=== PATIENT | female | born 1950 | race Caucasian/White ===

== ENCOUNTER 2017-06-26 00:44 | Emergency (ER) | payer OTHER ==
[~2017-06-26 00:44] MED LIST: Haloperidol INJ IV/IM* 5 MG/ML AMP ONE; LORazepam INJ* 2 MG/ML 1 ML VIAL ONE
[2017-06-26 01:49] LABS: Hematocrit 37 % (35-47); Hemoglobin 12.9 g/dl (12.0-16.0); Mean Corpuscular HGB Conc 35 g/dl (31-36); Mean Corpuscular Hemoglobin 34 pg (27-31); Mean Corpuscular Volume 98 fL (80-97); Mean Platelet Volume 8 um3 (7.4-10.4); Red Blood Count 3.78 10^6/ul (4.0-5.4); Red Cell Distribution Width 13 % (10.5-15); White Blood Count 5.1 10^3/ul (3.5-10.8)
[2017-06-26 02:03] LABS: ALT 22 U/L (7-52); AST 27 U/L (13-39); Albumin 3.8 g/dL (3.2-5.2); Alkaline Phosphatase 46 U/L (34-104); Anion Gap 8 mmol/L (2-11); BUN/Creatinine Ratio 15.5 (8-20); Blood Urea Nitrogen 13 mg/dL (6-24); CO2 Carbon Dioxide 25 mmol/L (22-32); Calcium 8.6 mg/dL (8.6-10.3); Chloride 106 mmol/L (101-111); EGFR African American 87.2 (>60); EGFR Non-African American 67.8 (>60); Glucose 114 mg/dL (70-100); Potassium 3.3 mmol/L (3.5-5.0); Sodium 139 mmol/L (133-145); Total Protein 5.8 g/dL (6.4-8.9)
[2017-06-26 02:09] LABS: Acetaminophen < 15 mcg/mL; Alcohol 222 mg/dL (<10); Salicylate < 2.50 mg/dL (<30)
[2017-06-26 02:25] LABS: TSH (Thyroid Stimulating Horm) 0.81 mcIU/mL (0.34-5.60)
[2017-06-26] MEDS ORDERED: NS 0.9% 1000 ML* 2,000 ML IV ONE (02:33)
[2017-06-26] MEDS ORDERED: NS 0.9% 1000 ML* 1,000 ML IV SCH (02:45)
[2017-06-26] MEDS ORDERED: Potassium Chlor TAB* 20 MEQ TAB.ER PO ONE (03:52)
[2017-06-26 04:49] LABS: Urine Bacteria Absent (Absent); Urine Bilirubin Negative (Negative); Urine Glucose Negative (Negative); Urine Nitrite Negative (Negative)
[2017-06-26 04:53] LABS: Benzodiazepine Urine Screen None Detected (None Detect)
[2017-06-26] MEDS ORDERED: NS 0.9% 1000 ML* 1,000 ML IV ONE (05:40)
--- NOTE | 2017-06-26 06:44 | ED ---
Willis Gutiérrez Tiffany, scriblorna for Josue Figueredo on 06/26/17 at 0111 . Adult Trauma - HPI Summary HPI Summary: This patient is a 66 year old F BIBA to [facility] accompanied by with a chief complaint of laceration to the back of her head s/p falling and hitting her head minutes ago. Symptoms aggravated by nothing. Symptoms alleviated by nothing. Per EMS, loss of conscious is unknown. The patient is 941. Upon arrival to ED, patient was in handcuffs and very agitated. Per patients , the patient is confused at baseline. He states that she drank some alcohol today before falling. - History of Current Complaint Stated Complaint: 941 Time Seen by Provider: 06/26/17 00:45 Hx Obtained From: Family/Inseamer - , EMS Mechanism of Injury: Fall Loss of Consciousness: unsure Onset/Duration: Started Minutes Ago, Still Present Location: Head Aggravating Factor(s): Nothing Alleviating Factor(s): Nothing - Additional Pertinent History Primary Care Physician: OBI - Allergy/Home Medications Allergies/Adverse Reactions: Allergies Allergy/AdvReac Type Severity Reaction Status Date / Time No Known Allergies Allergy Verified 01/14/16 17:42 PMH/Surg Hx/FS Hx/Imm Hx Previously Healthy: No Endocrine/Hematology History: Denies: Hx Diabetes Cardiovascular History: Denies: Hx Hypertension, Hx Pacemaker/ICD Respiratory History: Denies: Hx Asthma Musculoskeletal History: Reports: Hx Arthritis, Hx Back Problems Sensory History: Reports: Hx Contacts or Glasses Denies: Hx Hearing Aid Opthamlomology History: Reports: Hx Contacts or Glasses Psychiatric History: Reports: Hx Depression - depression last week on [facility] Denies: Hx Panic Disorder - Cancer History Hx Chemotherapy: No Hx Radiation Therapy: No - Surgical History Surgery Procedure, Year, and Place: crainiotomy Hx Anesthesia Reactions: No Infectious Disease History: Denies: Traveled Outside the [place] in Last 30 Days - Family History Known Family History: Positive: Other - Pt is uncooperative - Social History Alcohol Use: None Hx Substance Use: No Substance Use Type: Reports: None Hx Tobacco Use: No Smoking Status (MU): Never Smoked Tobacco Review of Systems Positive: Other - Laceration to back of head Positive: Other - Agitated All Other Systems Reviewed And Are Negative: Yes Physical Exam - Summary Physical Exam Summary: Appearance: alert and confused when she came in Skin: warm, dry, reflects adequate perfusion Head/face: 5 cm laceration over occipital scalp region Eyes: EOMI, AUDREY ENT: normal Neck: supple, non-tender Respiratory: CTA, breath sounds present Cardiovascular: RRR, pulses symmetrical Abdomen: non-tender, soft Bowel: present Musculoskeletal: normal, strength/ROM intact Neuro: normal, sensory motor intact, A&Ox3 Triage Information Reviewed: Yes Vital Signs On Initial Exam: Initial Vitals Temp Pulse Resp BP Pulse Ox 0 F 0 0 000/00 0 06/26/17 00:50 06/26/17 00:50 06/26/17 00:50 06/26/17 00:50 06/26/17 00:50 Vital Signs Reviewed: Yes Procedures - Procedure Summary Procedure Summary: At 03:13, patients laceration was cleaned with normal saline. Nine negin were placed, aseptic conditions. Patient tolerated well throughout with no complications. Diagnostics - Vital Signs Vital Signs Temp Pulse Resp BP Pulse Ox 06/26/17 04:34 71 16 97/70 96 06/26/17 03:26 71 16 131/82 98 06/26/17 02:34 64 14 95/60 95 06/26/17 01:45 65 14 102/60 92 06/26/17 01:44 97.4 F 68 14 76/56 94 06/26/17 00:50 0 F 0 0 000/00 0 - Laboratory Lab Results: Lab Results 06/26/17 06/26/17 06/26/17 Range/Units 01:30 01:30 04:30 WBC 5.1 (3.5-10.8) 10^3/ul RBC 3.78 L (4.0-5.4) 10^6/ul Hgb 12.9 (12.0-16.0) g/dl Hct 37 (35-47) % MCV 98 H (80-97) fL MCH 34 H (27-31) pg MCHC 35 (31-36) g/dl RDW 13 (10.5-15) % Plt Count 208 (150-450) 10^3/ul MPV 8 (7.4-10.4) um3 Neut % (Auto) 41.2 (38-83) % Lymph % (Auto) 51.2 H (25-47) % [place] % (Auto) 5.4 (1-9) % Eos % (Auto) 1.8 (0-6) % Baso % (Auto) 0.4 (0-2) % Absolute Neuts (auto) 2.1 (1.5-7.7) 10^3/ul Absolute Lymphs (auto) 2.6 (1.0-4.8) 10^3/ul Absolute Monos (auto) 0.3 (0-0.8) 10^3/ul Absolute Eos (auto) 0.1 (0-0.6) 10^3/ul Absolute Basos (auto) 0 (0-0.2) 10^3/ul Absolute Nucleated RBC 0.01 10^3/ul Nucleated RBC % 0.1 Sodium 139 (133-145) mmol/L Potassium 3.3 L (3.5-5.0) mmol/L Chloride 106 (101-111) mmol/L Carbon Dioxide 25 (22-32) mmol/L Anion Gap 8 (2-11) mmol/L BUN 13 (6-24) mg/dL Creatinine 0.84 (0.51-0.95) mg/dL Est GFR ( Amer) 87.2 (>60) Est GFR (Non-Af Amer) 67.8 (>60) BUN/Creatinine Ratio 15.5 (8-20) Glucose 114 H (70-100) mg/dL Calcium 8.6 (8.6-10.3) mg/dL Total Bilirubin 0.40 (0.2-1.0) mg/dL AST 27 (13-39) U/L ALT 22 (7-52) U/L Alkaline Phosphatase 46 (34-104) U/L Troponin I 0.00 (<0.04) ng/mL Total Protein 5.8 L (6.4-8.9) g/dL Albumin 3.8 (3.2-5.2) g/dL Globulin 2.0 (2-4) g/dL Albumin/Globulin Ratio 1.9 (1-3) TSH 0.81 (0.34-5.60) mcIU/mL Urine Color Urine Appearance Urine pH (5-9) Ur Specific Star (1.010-1.030) Urine Protein (Negative) Urine Ketones (Negative) Urine Blood (Negative) Urine Nitrate (Negative) Urine Bilirubin (Negative) Urine Urobilinogen (Negative) Ur Leukocyte Esterase (Negative) Urine WBC (Auto) (Absent) Urine RBC (Auto) (Absent) Ur Squamous Epith Cells (Absent) Urine Bacteria (Absent) Urine Glucose (Negative) Salicylates < 2.50 (<30) mg/dL Urine Opiates Screen None detected (None Detect) Acetaminophen < 15 mcg/mL Ur Barbiturates Screen None detected (None Detect) Ur Phencyclidine Scrn None detected (None Detect) Ur Amphetamines Screen None detected (None Detect) U Benzodiazepines Scrn None detected (None Detect) Urine Cocaine Screen None detected (None Detect) U Cannabinoids Screen None detected (None Detect) Serum Alcohol 222 H (<10) mg/dL 06/26/17 Range/Units 04:30 WBC (3.5-10.8) 10^3/ul RBC (4.0-5.4) 10^6/ul Hgb (12.0-16.0) g/dl Hct (35-47) % MCV (80-97) fL MCH (27-31) pg MCHC (31-36) g/dl RDW (10.5-15) % Plt Count (150-450) 10^3/ul MPV (7.4-10.4) um3 Neut % (Auto) (38-83) % Lymph % (Auto) (25-47) % [place] % (Auto) (1-9) % Eos % (Auto) (0-6) % Baso % (Auto) (0-2) % Absolute Neuts (auto) (1.5-7.7) 10^3/ul Absolute Lymphs (auto) (1.0-4.8) 10^3/ul Absolute Monos (auto) (0-0.8) 10^3/ul Absolute Eos (auto) (0-0.6) 10^3/ul Absolute Basos (auto) (0-0.2) 10^3/ul Absolute Nucleated RBC 10^3/ul Nucleated RBC % Sodium (133-145) mmol/L Potassium (3.5-5.0) mmol/L Chloride (101-111) mmol/L Carbon Dioxide (22-32) mmol/L Anion Gap (2-11) mmol/L BUN (6-24) mg/dL Creatinine (0.51-0.95) mg/dL Est GFR ( Amer) (>60) Est GFR (Non-Af Amer) (>60) BUN/Creatinine Ratio (8-20) Glucose (70-100) mg/dL Calcium (8.6-10.3) mg/dL Total Bilirubin (0.2-1.0) mg/dL AST (13-39) U/L ALT (7-52) U/L Alkaline Phosphatase (34-104) U/L Troponin I (<0.04) ng/mL Total Protein (6.4-8.9) g/dL Albumin (3.2-5.2) g/dL Globulin (2-4) g/dL Albumin/Globulin Ratio (1-3) TSH (0.34-5.60) mcIU/mL Urine Color Straw Urine Appearance Clear Urine pH 6.0 (5-9) Ur Specific Star 1.008 L (1.010-1.030) Urine Protein Negative (Negative) Urine Ketones Negative (Negative) Urine Blood 1+ H (Negative) Urine Nitrate Negative (Negative) Urine Bilirubin Negative (Negative) Urine Urobilinogen Negative (Negative) Ur Leukocyte Esterase Negative (Negative) Urine WBC (Auto) Trace(0-5/hpf) (Absent) Urine RBC (Auto) Trace(0-2/hpf) (Absent) Ur Squamous Epith Cells Present H (Absent) Urine Bacteria Absent (Absent) Urine Glucose Negative (Negative) Salicylates (<30) mg/dL Urine Opiates Screen (None Detect) Acetaminophen mcg/mL Ur Barbiturates Screen (None Detect) Ur Phencyclidine Scrn (None Detect) Ur Amphetamines Screen (None Detect) U Benzodiazepines Scrn (None Detect) Urine Cocaine Screen (None Detect) U Cannabinoids Screen (None Detect) Serum Alcohol (<10) mg/dL Result Diagrams: 06/26/17 01:30 06/26/17 01:30 Lab Statement: Any lab studies that have been ordered have been reviewed, and results considered in the medical decision making process. - CT Head CT Interpretation Completed By: Radiologist - No acute brain parenchymal abnormality. No hemorrhage, mass or acute territorial infarct. Chronic infarct right parietal and temporal lobes, also present on 04/19/15. Right craniotomy with interval resolution of small subjacent subdural hematoma/dural thickening/ calcifications that were seen on prior exam. Atrophy. No skull fracture. Small laceration and swelling appearing in left occipital scalp. Clear visualized paranasal sinuses. Visualized mastoid air cells clear. ED physician has reviewed this radiology report. Cervical Spine CT Interpretation Completed By: Radiologist - No definite acute fracture or malalignment. Exam slightly limited by motion artifact. Multilevel spondylosis. Straightening of cervical lordosis, possibly due to positioning or muscle spasm. 9 mm hypodense nodule left thyroid lobe. Left occipital scalp swelling. ED physician has reviewed this radiology report. - EKG 01:22 Cardiac Rate: NL EKG Rhythm: Sinus Rhythm - 72 BPM EKG Interpretation: No acute changes Adult Trauma Course/Dx - Course Course Of Treatment: This patient is a 66 year old F BIBA to [facility] with a chief complaint of laceration to the back of her head s/p falling and hitting her head minutes ago. An EKG reveals sinus rhythm 72 BPM and no acute changes. CT Head reveals, per radiologist, No acute brain parenchymal abnormality. No hemorrhage, mass or acute territorial infarct. Chronic infarct right parietal and temporal lobes, also present on 04/19/15. Right craniotomy with interval resolution of small subjacent subdural hematoma/dural thickening/calcifications that were seen on prior exam. Atrophy. No skull fracture. Small laceration and swelling appearing in left occipital scalp. Clear visualized paranasal sinuses. Visualized mastoid air cells clear. CT Cervical Spine reveals, per radiologist, No definite acute fracture or malalignment. Exam slightly limited by motion artifact. Multilevel spondylosis. Straightening of cervical lordosis, possibly due to positioning or muscle spasm. 9 mm hypodense nodule left thyroid lobe. Left occipital scalp swelling. Bloodwork obtained. In the ED course, the patient was given B52. At 03:13, patients laceration was cleaned with normal saline. Nine negin were placed, aseptic conditions. Patient tolerated well throughout with no complications. Patient will be discharged with follow up from PCP. The patient and her are agreeable with this plan. - Diagnoses Differential Diagnosis/HQI/PQRI: Positive: Contusion(s), Fracture, Hematoma(s), Other - lac scalp, head injury Provider Diagnoses: Alcohol intoxication, Head injury, Laceration of scalp, Hx of CVA w/ short- term memoryimpairment Discharge - Discharge Plan Condition: Stable Disposition: HOME Patient Education Materials: Laceration (ED), Head Injury (ED), Alcohol Intoxication (ED) Referrals: Morena Gu MD [Primary Care Provider] - 3 Days Additional Instructions: Follow up with your Primary Care Provider in 3 days to have wound checked. Follow up with your Primary Care Provider in 7 days to have negin removed. Return to the Emergency Room if current symptoms worsen or if new symptoms develop. The documentation as recorded by the Willis elias Tiffany accurately reflects the service I personally performed and the decisions made by , Josue Figueredo.
[2017-06-26 06:48] VITALS: BP 101/72
--- NOTE | 2017-06-26 08:03 | RAD ---
INDICATION: Head injury. COMPARISON: Comparison is made with a prior CT of the brain from April 19, 2015. TECHNIQUE: Contiguous axial sections of the brain were obtained from the skull base to the vertex without contrast. FINDINGS: There is a large area of encephalomalacia present in the posterior right parietal and temporal lobes most consistent with an old infarct. There is negative mass effect with dilatation of the right lateral ventricle. No other focal abnormalities or mass effect is seen. There is no evidence for hemorrhage. The patient is status post right parietal and temporal craniotomies. No acute fracture is seen. There is focal soft tissue swelling in the scalp posterior to the left occipital bone. The visualized portion of the paranasal sinuses and mastoid air cells appear clear IMPRESSION: 1. NO EVIDENCE FOR ACUTE INTRACRANIAL ABNORMALITY. 2. POSTSURGICAL CHANGES AND LARGE AREA OF ENCEPHALOMALACIA IN THE POSTERIOR RIGHT PARIETAL AND TEMPORAL LOBES.
--- NOTE | 2017-06-26 11:12 | RAD ---
Indication: Neck and head injury. CT of the cervical spine was obtained in the axial plane. Sagittal and coronal reconstructed images were obtained. Motion artifact limits evaluation. The skull base demonstrates no evidence of fracture. Mastoid air cells are well aerated. The C1 ring is intact. The vertebral bodies otherwise appear normal in height. Disc space narrowing at C4-C5, C5-C6 and C6-C7 is noted with osteophyte formation. Facet arthropathy is noted. IMPRESSION: No fracture of the cervical spine is noted. Degenerative disc disease at C4-C5, C5-C6 and C6-C7.
== END 2017-06-26 06:46 | disposition home or self-care (01) ==
LOC: ED 00:44
DX: S01.01XA Laceration without foreign body of scalp, initial encounter (principal); S09.90XA Unspecified injury of head, initial encounter; F10.129 Alcohol abuse with intoxication, unspecified; I69.311 Memory deficit following cerebral infarction; W19.XXXA Unspecified fall, initial encounter; Y92.9 Unspecified place or not applicable; F32.9 Major depressive disorder, single episode, unspecified
CPT/HCPCS: 12001; 36415; 70450; 72125; 80053; 80307; 80320; 80329; 81003; 81015; 84443; 84484; 85025; 93005; 96360; 99285; G0480; J1630; J2060

== ENCOUNTER 2021-08-27 19:40 | Inpatient (IN) ==
[2021-08-27] MEDS ORDERED: Droperidol 5 MG/2 ML 2 ML VIAL IM ONE (19:41)
[2021-08-27] MEDS ORDERED: LORazepam 2 mg VIAL 1 ml IM ONE (19:41)
[2021-08-27] MEDS ORDERED: Lorazepam PYXIS KEY PRN (19:41)
[2021-08-27 21:05] LABS: ABS Basophils 0.1 10^3/ul (0-0.2); ABS Lymphocytes 1.3 10^3/ul (1.0-4.8); ABS Monocytes 0.4 10^3/ul (0-0.8); ABS Neutrophils 4.8 10^3/ul (1.5-7.7); Eosinophil % 0.7 %; Hematocrit 42 % (35-47); Hemoglobin 14.7 g/dL (12.0-16.0); Lymphocyte % 19.2 %; Mean Corpuscular HGB Conc 35 g/dL (31-36); Mean Corpuscular Hemoglobin 33 pg (27-31); Mean Corpuscular Volume 94 fL (80-97); Mean Platelet Volume 8.9 fL (7.4-10.4); Platelet Count 210 10^3/uL (150-450); Red Blood Count 4.54 10^6 /uL (3.70-4.87); Red Cell Distribution Width 13 % (10-15); White Blood Count 6.6 10^3/uL (3.5-10.8)
[2021-08-27] MEDS ORDERED: Haloperidol 5 mg/ml SDV IV/IM 5 MG/ML AMP IM ONE (21:12)
[2021-08-27 21:26] LABS: Alcohol, S < 13 mg/dL (<13)
[2021-08-27 21:30] LABS: ALT 115 U/L (7-52); AST 83 U/L (13-39); Albumin 4.1 g/dL (3.2-5.2); Albumin/Globulin Ratio 1.8 (1-3); Alkaline Phosphatase 59 U/L (35-149); Anion Gap 10 mmol/L (2-11); Blood Urea Nitrogen 13 mg/dL (6-24); CO2 Carbon Dioxide 24 mmol/L (22-32); Calcium 9.7 mg/dL (8.6-10.3); Chloride 105 mmol/L (101-111); Globulin 2.3 g/dL (2-4); Glucose 121 mg/dL (70-100); Magnesium 1.7 mg/dL (1.9-2.7); Potassium 3.7 mmol/L (3.5-5.0); Sodium 139 mmol/L (135-145); Total Protein 6.4 g/dL (6.4-8.9); eGFR CKD-EPI 69.7 (>60)
[2021-08-27 21:44] LABS: TSH Ultra Thyroid Stim Horm 0.76 mcIU/mL (0.34-5.60)
[2021-08-28 00:40] LABS: Urine Appearance Cloudy; Urine Bilirubin Negative (Negative); Urine Blood 1+ (Negative); Urine Color Amber; Urine Glucose Negative (Negative); Urine Ketones 2+ (Negative); Urine Nitrite Positive (Negative); Urine Protein 2+(100 mg/dL) (Negative); Urine Specific Gravity 1.027 (1.002-1.030); Urine Urobilinogen Negative (Negative)
[2021-08-28 00:52] LABS: Urine Bacteria 1+ (Absent); Urine Red Blood Cell 2+(6-10/hpf) (Absent); Urine Squamous Epithelial Cell Present (Absent); Urine White Blood Cell 2+(11-20/hpf) (Absent); Urine Yeast Present (Absent)
[2021-08-28] MEDS ORDERED: Magnesium Sulfate 2 gm BAG 2 GM/50 ML BAG IVPB ONE (01:23)
[2021-08-28] MEDS ORDERED: cefTRIAXone 1 gm/50 mL NS BAG 1 GM/50 ML BAG IV ONE (01:23)
[2021-08-28] MEDS ORDERED: Lactated Ringers 1000 ml BAG 1,000 ML IV SCH ×2 (02:00→09:00)
[2021-08-28 02:42] LABS: Vitamin B12 391 pg/mL (180-914)
[2021-08-28 03:12] LABS: Creatine Kinase 142 U/L (10-223)
[2021-08-28] MEDS: Enoxaparin 40 MG/0.4 ML SYR SUBCUT SCH (05:23)
[2021-08-28 06:06] LABS: Albumin 3.6 g/dL (3.2-5.2); Albumin/Globulin Ratio 1.6 (1-3); Globulin 2.2 g/dL (2-4); Magnesium 2.5 mg/dL (1.9-2.7); Potassium 4.1 mmol/L (3.5-5.0); Total Bilirubin 0.6 mg/dL (0.2-1.0); Total Protein 5.8 g/dL (6.4-8.9)
[2021-08-28] MEDS: DULoxetine DR 20 mg CAP PO SCH (08:25)
[2021-08-28] MEDS: Vitamin THERAPEUTIC TAB PO SCH (08:25)
[2021-08-28] MEDS: cefTRIAXone 1 gm/50 mL NS BAG 1 GM/50 ML BAG IVPB SCH (21:27)
[2021-08-29] MEDS: Enoxaparin 40 MG/0.4 ML SYR SUBCUT SCH (06:15)
[2021-08-29] MEDS: Vitamin THERAPEUTIC TAB PO SCH (09:47)
[2021-08-29] MEDS: DULoxetine DR 20 mg CAP PO SCH (09:47)
[2021-08-29] MEDS: cefTRIAXone 1 gm/50 mL NS BAG 1 GM/50 ML BAG IVPB SCH (21:30)
[2021-08-29] MEDS ORDERED: Lorazepam PYXIS KEY PRN ×2 (21:43→22:25)
[2021-08-29] MEDS ORDERED: LORazepam 2 mg VIAL 1 ml IV PUSH ONE (21:44)
[2021-08-29] MEDS ORDERED: LORazepam 2 mg VIAL 1 ml IM ONE (22:25)
[2021-08-30 06:31] LABS: Albumin 3.7 g/dL (3.2-5.2); Albumin/Globulin Ratio 1.8 (1-3); Globulin 2.1 g/dL (2-4); Potassium 3.8 mmol/L (3.5-5.0); Total Bilirubin 0.7 mg/dL (0.2-1.0); Total Protein 5.8 g/dL (6.4-8.9); eGFR CKD-EPI 93.3 (>60)
[2021-08-30] MEDS: Enoxaparin 40 MG/0.4 ML SYR SUBCUT SCH (07:30)
[2021-08-30] MEDS: Vitamin THERAPEUTIC TAB PO SCH (08:33)
[2021-08-30] MEDS: DULoxetine DR 20 mg CAP PO SCH (08:33)
[2021-08-31] MEDS: Enoxaparin 40 MG/0.4 ML SYR SUBCUT SCH (05:42)
[2021-08-31 06:32] LABS: Albumin/Globulin Ratio 1.9 (1-3); Calcium 9.5 mg/dL (8.6-10.3); Globulin 2.1 g/dL (2-4); Potassium 3.6 mmol/L (3.5-5.0); Total Bilirubin 0.9 mg/dL (0.2-1.0); Total Protein 6.1 g/dL (6.4-8.9); eGFR CKD-EPI 94.7 (>60)
[2021-08-31] MEDS: DULoxetine DR 20 mg CAP PO SCH (08:44)
[2021-08-31] MEDS: Vitamin THERAPEUTIC TAB PO SCH ×2 (08:45→08:53)
[2021-08-31 10:29] LABS: Hepatitis B Surface Antigen Nonreactive (Nonreactive)
[2021-08-31 10:34] LABS: Hepatitis A Ab IgM Negative (Negative)
[2021-08-31 10:35] LABS: Hepatitis B Core IgM Nonreactive (Nonreactive)
[2021-08-31 10:46] LABS: Hepatitis C Antibody Negative (Negative)
[2021-09-01] MEDS: Enoxaparin 40 MG/0.4 ML SYR SUBCUT SCH (06:43)
[2021-09-01] MEDS ORDERED: Haloperidol 5 mg/ml SDV IV/IM 5 MG/ML AMP ONE ×2 (09:58→19:17)
[2021-09-01] MEDS: Haloperidol 5 mg/ml SDV IV/IM 5 MG/ML AMP IV SLOW PU PRN ×2 (10:01→18:22)
[2021-09-01] MEDS: DULoxetine DR 20 mg CAP PO SCH (10:18)
[2021-09-01] MEDS: Vitamin THERAPEUTIC TAB PO SCH (10:18)
[2021-09-01 16:44] VITALS: BP 138/82
[2021-09-01] MEDS ORDERED: Haloperidol 5 mg/ml SDV IV/IM 5 MG/ML AMP IM ONE (19:14)
[2021-09-01] MEDS ORDERED: Haloperidol 5 mg/ml SDV IV/IM 5 MG/ML AMP IV SLOW PU PRN (19:14)
[2021-09-01] MEDS ORDERED: Haloperidol 5 mg/ml SDV IV/IM 5 MG/ML AMP IM PRN (19:15)
[2021-09-02] MEDS: Enoxaparin 40 MG/0.4 ML SYR SUBCUT SCH (06:25)
[2021-09-02] MEDS ORDERED: COVID-19 VACCINE, TRIS(PFIZER)/PF 30 MCG/0.3 ML IM ONE (10:00)
[2021-09-02 11:27] LABS: Rapid COVID-19 Molecular Undetected (Undetected)
[2021-09-02] MEDS: Vitamin THERAPEUTIC TAB PO SCH (12:00)
[2021-09-02] MEDS: DULoxetine DR 20 mg CAP PO SCH (12:00)
== END 2021-09-02 14:25 | DRG 690 ==
LOC: ED 19:40 → EDHOLD 08-28 01:54 → SUATTDRO 08-28 01:54 → MEDTELE 08-28 10:18 → SSU 09-01 09:52
PROVIDERS: ADMIT Internal Medicine; ATTEND Hospitalist